=== PATIENT | male | born 1985 | race Caucasian/White ===

== ENCOUNTER 2016-11-29 11:50 | Emergency (ER) | payer OTHER ==
[2016-11-29] MEDS ORDERED: HYDROGEN PEROXIDE 236 ML BOTTLE TP ONE ×2 (12:58→13:41)
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
[2016-11-29] MEDS ORDERED: GADOBUTROL 10 ML VIAL IVP ONE (17:15)
[2016-11-29 18:47] VITALS: BP 134/82; PULSE 83; RESP 16; TEMP 98.6; O2SAT 96
== END 2016-11-29 14:29 | disposition home or self-care (01) ==
DX: S02.5XXA Fracture of tooth (traumatic), initial encounter for closed fracture (principal); S50.01XA Contusion of right elbow, initial encounter; S50.311A Abrasion of right elbow, initial encounter; S60.512A Abrasion of left hand, initial encounter; D32.9 Benign neoplasm of meninges, unspecified; F17.200 Nicotine dependence, unspecified, uncomplicated; Y08.89XA Assault by other specified means, initial encounter
CPT/HCPCS: A9585

== ENCOUNTER 2017-10-08 13:10 | Emergency (ER) | payer OTHER ==
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
[2017-10-08] MEDS ORDERED: TDAP ADULT 0.5 ML INJ (BOOSTRIX) IM ONE (14:38)
[2017-10-08 14:58] VITALS: TEMP 99.1
--- NOTE | 2017-10-08 16:20 | ASMTCAGE ---
CAGE Do you feel you ought to Answers: Yes cut down on your drinking or drug use? Do people annoy you by Answers: No criticizing your drinking or drug use? Do you feel guilty about Answers: No your drinking or drug use? Do you drink or use drugs Answers: Yes first thing in the morning ([employer])? Date Signed: 10/08/2017 04:20 PM Electronically Signed By:Itzel Bruno RN
[2017-10-08 16:25] VITALS: BP 130/84; PULSE 100; RESP 16; O2SAT 94
--- NOTE | 2017-10-08 16:34 | ASDISCHSUM ---
Discharge Information Plan Status:Home with No Needs Medically Cleared to Leave: Discharge Date:10/08/2017 04:25 PM CM D/C Disposition:Home, Routine, Self-Care ADT D/C Disposition:Home, Routine, Self-Care Projected Discharge Date:10/08/2017 04:25 PM Transportation at D/C:None or Unknown Discharge Delay Reason: Follow-Up Date:10/08/2017 04:25 PM Discharge Slot: Final Diagnosis: Placement Information Patient Contact Information Contact Name:SOHAM Relationship:Father Address:[address] [address] Work Phone: City:[place] Alternate Phone: [facility]/Zip Code:[place] [address] Email: Financial Information Financial Class:[facility] Primary Plan Desc:[employer] PPO AND EPO Primary Plan Number:[id number] Secondary Plan Desc: Secondary Plan Number: Assessment Information CAGE Questionnaire CAGE Do you feel you ought to Answers: Yes cut down on your drinking or drug use? Do people annoy you by Answers: No criticizing your drinking or drug use? Do you feel guilty about Answers: No your drinking or drug use? Do you drink or use drugs Answers: Yes first thing in the morning ([employer] M[employer])? Date Signed: 10/08/2017 04:20 PM Electronically Signed By:Itzel Bruno RN [facility] CM Progress Note CM Note CM Note Notes: Spoke with patient about his alcohol abuse and provided resources for Inpatient, IOP or OP options, as well as information on [facility] and/or [facility]. Patient states he started drinking again about 4-5 yrs ago, before that he had been sober for almost 8 years. Pt states he drinks daily and usually has a total of 20 drinks a drink, usually beer and whiskey. Patient verbally expresses self-awareness and insight into his alcohol abuse and states "this is not sustainable. something has to change." Pt states he is going through a divorce and although he and his ex- are amicable, it has been stressful so in addition to his depression, he has been self-medicating with alcohol, "but it has gotten out of control now." When asked about whether he has friends and family for support, he states "Not really. They are all back in [place] and I don't get back there often." Pt states he has friends locally but "they are all drinking buddies, so not necessarily the support I need to quit drinking." We discussed how he might be surprised if he reaches out to his friends, possibly co-workers (pt works in IT at [employer]) and friends/family back in [place]; pt stated "you're right, I don't know unless I ask." Pt states he has tried AA meetings in the past but "they don't really work for me." Pt interested in alternatives; pt provided info on [facility]. Pt strongly encouraged to follow-up with his PCP Dr Michaud, the ortho on-call he is referred to,with alcohol treatment and mental health services. CM available for further assistance if needed. Date Signed: 10/08/2017 04:32 PM Electronically Signed By:Itzel Bruno RN LACE LACE Acuity / Level of Answers: No Care: Did the patient have an inpatient admission? # of Emergency department Answers: 1-2 visits in the last 6 months Social determinants Answers: History of substance abuse (ETOH, street drugs, prescription drugs, etc.) Score: 4 Date Signed: 10/08/2017 04:33 PM Electronically Signed By:Itzel Sjoden, RN Intervention Information Intervention Type:Substance Abuse Treatment Date of Service:10/08/2017 04:32 PM Patient Type:Emergency Room Staff Member:RAUDEL Bruno [place] Hours:0.5 Discipline:Manager Disaster Recovery Severity: Comment: Intervention Type:Mental Health Treatment Date of Service:10/08/2017 04:32 PM Patient Type:Emergency Room Staff Member:RAUDEL Bruno [place] Hours:0.25 Discipline:Manager Disaster Recovery Severity: Comment:
== END 2017-10-08 16:25 | disposition home or self-care (01) ==
DX: S09.93XA Unspecified injury of face, initial encounter (principal); S60.221A Contusion of right hand, initial encounter; F17.200 Nicotine dependence, unspecified, uncomplicated; Z23 Encounter for immunization; W18.39XA Other fall on same level, initial encounter
CPT/HCPCS: L3807